=== PATIENT | female | born 1975 | race Caucasian/White ===

== ENCOUNTER 2018-01-27 14:08 | Emergency (ER) | payer OTHER ==
[~2018-01-27] VITALS: Ht 160 cm; Wt 66.1 kg
[~2018-01-27 14:08] MED LIST: ALBU1AER9 INH; ASCO1CAP3 PO; CETI10TA84 PO; CYAN10004 PO; EFFSR150 PO; ERGO500011 PO; FERR1TAB23 PO; FLNIN NAE; MONT1TAB3 PO; POLY335025 PO; PRLSR20 PO; RANI300T2 PO; SALM50AE2 INH
[2018-01-27 14:16] VITALS: TEMP 36.9; Ht 160 cm; Wt 66.1 kg
--- NOTE | 2018-01-27 15:30 | DIAGNOSTIC IMAGING REPORT ---
CHEST ONE VIEW PORTABLE CLINICAL HISTORY: Atypical chest pain COMPARISON STUDY: No previous studies for comparison. FINDINGS: The cardiac and mediastinal contours are normal. There is no evidence of focal pulmonary consolidation. There is no evidence of failure. No pleural effusions are visualized.[ IMPRESSION: No active disease in the chest. Electronically signed by: Justo Payton M.D. 01/27/2018 3:28 PM Dictated Date/Time: 01/27/2018 3:28 PM
[2018-01-27 15:36] LABS: HEMOGLOBIN 12.1 g/dL (12.0-16.0); MEAN CELL VOLUME 89.1 fL (80-100); MEAN CORPUSCULAR HGB CONC 33.6 g/dl (32-36); MEAN PLATELET VOLUME 10.2 fL (7.4-10.4); PLATELET COUNT 436 K/uL (130-400); RED CELL DISTRIBUTION WIDTH CV 12.6 % (11.5-14.5); RED CELL DISTRIBUTION WIDTH SD 40.5 fL (36.4-46.3); WHITE BLOOD COUNT 9.44 K/uL (4.8-10.8)
[2018-01-27] MEDS ORDERED: BENZ100C84 PO (16:00)
[2018-01-27] MEDS ORDERED: CHOL20009 PO (16:00)
[2018-01-27] MEDS ORDERED: PROAIR 108 INH (16:00)
[2018-01-27] MEDS ORDERED: FLUT0.15 NAE (16:00)
[2018-01-27] MEDS ORDERED: NAPR-1169 PO (16:00)
[2018-01-27] MEDS ORDERED: VENL150T33 PO (16:02)
[2018-01-27 16:04] LABS: ALBUMIN 3.6 gm/dl (3.4-5.0); ALT/SGPT 137 U/L (12-78); AST/SGOT 146 U/L (15-37); BLOOD UREA NITROGEN 14 mg/dl (7-18); CALCIUM 8.9 mg/dl (8.5-10.1); CARBON DIOXIDE 30 mmol/L (21-32); CREATININE 0.83 mg/dl (0.60-1.20); GLUCOSE 91 mg/dl (70-99); LIPASE 147 U/L (73-393); SODIUM 137 mmol/L (136-145)
[2018-01-27 16:09] LABS: ALKALINE PHOSPHATASE 115 U/L (45-117); TOTAL PROTEIN 7.5 gm/dl (6.4-8.2)
--- NOTE | 2018-01-27 17:37 | DIAGNOSTIC IMAGING REPORT ---
ABDOMINAL ULTRASOUND, RIGHT UPPER QUADRANT HISTORY: epigastric pain, elevated LFTs. COMPARISON: None. FINDINGS: Pancreas: The pancreatic tail is obscured by overlying bowel gas. The remaining portions of the pancreas are within normal limits. Liver: Unremarkable. Gallbladder: No gallbladder wall thickening. No gallstones. CBD: 3 mm. Right kidney: No hydronephrosis. IMPRESSION: No significant abnormality identified within the right upper quadrant. Electronically signed by: Stanislaw Ahmadi M.D. 01/27/2018 5:35 PM Dictated Date/Time: 01/27/2018 5:35 PM
--- NOTE | 2018-01-27 18:08 | EMERGENCY ROOM VISIT NOTE ---
History First contact with patient: 15:00 Chief Complaint: CHEST PAIN Stated Complaint: CHEST PAIN - SENT BY DR WERNER Nursing Triage Summary: pt reports had ekg done at pcp was irregular sent here for further eval. chest pain started yesterday afternoon and all night. denies anything making it better or worse History of Present Illness The patient is a 42 year old female who presents to the Emergency Room with complaints of chest discomfort which began last night. The patient reports substernal chest pain which began last night and has persisted all day today. She states the pain is slightly better now and rates her current discomfort a 4/ 10. She states that she feels a tightness when taking a deep breath. She reports a history of a hiatal hernia and does state that her symptoms feel similar to previous times that she has had heartburn. She takes omeprazole daily for stomach issues. The patient denies any history of cardiac issues. She denies any known family history of cardiac problems. She does not smoke. She denies control pill use, leg pain/swelling or recent travel. Patient denies fever/chills, cough or shortness of breath. She was seen at her primary care provider's office this morning and was sent here for a potentially abnormal EKG. Review of Systems A complete 10 point review of systems was reviewed with the patient with pertinent positives and negatives as per history of present illness. All else were negative. Past Medical/Surgical History Medical Problems: (1) Asthma (2) Hiatal hernia Surgical Problems: (1) No significant past surgical history Family History FHx: cancer Hypertension Kidney disease Social History Smoking Status: Never Smoker Alcohol Use: none Occupation Status: unemployed Current/Historical Medications Scheduled Ascorbic Acid (Vitamin C), 500 MG PO DAILY Cholecalciferol (Vitamin D), 2,000 UNITS PO DAILY Cyanocobalamin (Vitamin B-12 1000 Mcg), 1,000 MCG PO DAILY Ferrous Sulfate (Iron), 325 MG PO DAILY Fluticasone Propionate (Nasal) (Flonase Allergy Relief), 2 SPRAYS FIFI DAILY Omeprazole (Prilosec), 20 MG PO DAILY Venlafaxine Hcl (Venlafaxine Hcl Er), 150 MG PO DAILY Scheduled PRN Benzonatate (Tessalon Perles), 100 MG PO TID PRN for Cough Naproxen (Naprosyn), 500 MG PO BID PRN for Pain Polyethylene Glycol 3350 (Miralax), 1 DOSE PO DAILY PRN for Constipation [Proair 108], 2 PUFFS INH Q4 PRN for COUGH/WHEEZE Physical Exam Vital Signs Date Time Temp Pulse Resp B/P (MAP) Pulse Ox O2 Delivery O2 Flow Rate FiO2 01/27/18 18:20 76 18 132/72 98 Room Air 01/27/18 15:50 82 18 134/76 98 Room Air 01/27/18 14:16 36.9 95 18 133/96 98 Room Air Physical Exam VITALS: Vitals are noted on the nurse's note and reviewed by myself. Vital signs stable. GENERAL: This is a 42-year-old female, in no acute distress, nondiaphoretic, well-developed well-nourished. SKIN: The skin was without rashes. EARS: External auditory canals clear, tympanic membranes pearly zuniga without erythema or effusion bilaterally. EYES: Pupils equal round and reactive to light and accommodation. MOUTH: Mucous membranes moist. Tonsils are not enlarged. Pharynx without erythema or exudate. NECK: Supple without nuchal rigidity. No lymphadenopathy. HEART: Regular rate and rhythm without murmurs gallops or rubs. LUNGS: Clear to auscultation bilaterally without wheezes, rales or rhonchi. No retractions or accessory muscle use. ABDOMEN: Positive bowel sounds x 4. Soft, mild tenderness in the epigastric region. No guarding or rebound tenderness. NEURO: Patient was alert and oriented to person place and time. Medical Decision & Procedures ER Provider Diagnostic Interpretation: CHEST ONE VIEW PORTABLE FINDINGS: The cardiac and mediastinal contours are normal. There is no evidence of focal pulmonary consolidation. There is no evidence of failure. No pleural effusions are visualized.[ IMPRESSION: No active disease in the chest. ABDOMINAL ULTRASOUND, RIGHT UPPER QUADRANT IMPRESSION: No significant abnormality identified within the right upper quadrant. Laboratory Results 01/27/18 15:22 Red Blood Count 4.04, Mean Corpuscular Volume 89.1, Mean Corpuscular Hemoglobin 30.0, Mean Corpuscular Hemoglobin Concent 33.6, Mean Platelet Volume 10.2 01/27/18 15:22 Test 01/27/18 15:22 White Blood Count 9.44 K/uL (4.8-10.8) Red Blood Count 4.04 M/uL (4.2-5.4) Hemoglobin 12.1 g/dL (12.0-16.0) Hematocrit 36.0 % (37-47) Mean Corpuscular Volume 89.1 fL (80-100) Mean Corpuscular Hemoglobin 30.0 pg (25-34) Mean Corpuscular Hemoglobin Concent 33.6 g/dl (32-36) Platelet Count 436 K/uL (130-400) Mean Platelet Volume 10.2 fL (7.4-10.4) RDW Standard Deviation 40.5 fL (36.4-46.3) RDW Coefficient of Variation 12.6 % (11.5-14.5) Neutrophils % (Manual) 50.4 % Lymphocytes % (Manual) 22.6 % Variant Lymphocytes % (manual) 14.8 % Monocytes % (Manual) 7.0 % Eosinophils % (Manual) 3.5 % Basophils % (Manual) 1.7 % Neutrophils # (Manual) 4.76 K/uL (1.4-6.5) Total Absolute Neutrophils 4.76 K/uL (1.4-6.5) Lymphocytes # (Manual) 2.13 K/uL (1.2-3.4) Absolute Variant Lymphocytes 1.40 K/uL Total Absolute Lymphocytes 3.53 K/uL (1.2-3.4) Monocytes # (Manual) 0.66 K/uL (0.11-0.59) Eosinophils # (Manual) 0.33 K/uL (0-0.5) Basophils # (Manual) 0.16 K/uL (0-0.2) Red Blood Cell Morphology Unremarkable Anion Gap 4.0 mmol/L (3-11) Est Creatinine Clear Calc Drug Dose 80.7 ml/min Estimated GFR () 100.8 Estimated GFR (Non- 87.0 BUN/Creatinine Ratio 16.9 (10-20) Calcium Level 8.9 mg/dl (8.5-10.1) Total Bilirubin 0.2 mg/dl (0.2-1) Aspartate Amino Transf (AST/SGOT) 146 U/L (15-37) Alanine Aminotransferase (ALT/SGPT) 137 U/L (12-78) Alkaline Phosphatase 115 U/L (45-117) Troponin I < 0.015 ng/ml (0-0.045) Total Protein 7.5 gm/dl (6.4-8.2) Albumin 3.6 gm/dl (3.4-5.0) Globulin 3.9 gm/dl (2.5-4.0) Albumin/Globulin Ratio 0.9 (0.9-2) Lipase 147 U/L (73-393) ECG Per My Interpretation Indication: chest pain Rate (beats per minute): 86 Rhythm: normal sinus Findings: no acute ischemic change, no ectopy Comparison ECG Date: no prior available Medical Decision Differential diagnosis includes acute coronary syndrome, pulmonary embolism, pneumothorax, pericarditis, myocarditis, endocarditis, anxiety, musculoskeletal pain, GERD, costochondritis, pneumonia, among others. The patient is a 42-year-old female who presents today complaining of chest pain sent here by her primary care provider's office. Patient apparently had EKG changes. Review of the office EKG shows no obvious ischemic findings. There was some question of Q waves in the anterior leads which I feel was likely due to lead placement. EKG here shows a normal sinus rhythm without ischemic changes or ectopy. Labs revealed no leukocytosis or anemia. Troponin was not elevated. Symptoms not highly suggestive of a pulmonary embolism and patient is PERC negative. Symptoms ongoing greater than 6 hours and I do not feel repeat troponin is necessary. Gallbladder ultrasound was obtained as patient had elevation of LFTs and epigastric pain. This was negative. Patient does have a history of hiatal hernia and symptoms may be secondary to uncontrolled GERD. She was advised to follow-up closely with her primary care provider. The patient's case was reviewed with Dr. Harding, ED attending physician, who agreed with my assessment and treatment plan. Based on the patient's presentation and work up, I feel the patient is stable for outpatient treatment. The patient was educated to return to the emergency department for any worsening of their current condition or new/concerning symptoms. She will follow up with her PCP. Medication Reconcilliation Current Medication List: was personally reviewed by me Blood Pressure Screening Patient's blood pressure: Normal blood pressure Impression Primary Impression: Substernal precordial chest pain Departure Information Dispostion Home / Self-Care Condition GOOD Referrals Karen Werner D.O. (PCP) Patient Instructions My [facility] Additional Instructions You have been treated in the Emergency Department for your upper abdominal/ chest Pain. Laboratory results and Imaging Studies have ruled out any acute cardiac or pulmonary cause of your chest pain. For pain control, you can use the following [id number] medicines (if >12 yo): - Regular strength (200 mg/tab) Advil (ibuprofen) 1-2 tabs every 4-6 hours as needed. Do not exceed a dose of 3200 mg per day. You may try taking Zantac or Tums for your pain, as it may be related to gastritis/acid reflux. You should schedule a follow-up appointment with your Primary Care Provider in 2 -3 days for further evaluation from today's Emergency Department visit. Return to the Emergency Department if your current symptoms worsen despite treatment course outlined above, or if you develop any of the following symptoms : worsening chest pain, associated jaw/arm pain, nausea, dizziness, shortness of breath, bloody cough, or fainting.
[2018-01-27 18:20] VITALS: BP 132/72; PULSE 76; O2SAT 98
== END 2018-01-27 18:36 | disposition home or self-care (01) ==
LOC: C.EDB 14:09
DX: R07.2 Precordial pain (principal); J45.909 Unspecified asthma, uncomplicated; Z79.899 Other long term (current) drug therapy